=== PATIENT | male | born 1970 | race Caucasian/White ===

== ENCOUNTER 2023-01-13 21:40 | Emergency (ER) | payer OTHER ==
[2023-01-13 21:48] VITALS: RESP 18; BMI 27.8
[2023-01-13] MEDS ORDERED: morphine SULFATE 4 MG/ML VIAL IVPUSH ONE (22:30)
[2023-01-13] MEDS ORDERED: ONDANSETRON 4 MG/2 ML VIAL ONE (22:37)
[2023-01-13] MEDS ORDERED: morphine SULFATE 4 MG/ML VIAL ONE (22:37)
[2023-01-13] MEDS ORDERED: ONDANSETRON 4 MG/2 ML VIAL IVPUSH ONE (22:38)
[2023-01-13 22:58] LABS: BASO % 0.4 % (0-2.0); EOS % 0.4 % (0-4.5); HEMATOCRIT 44.9 % (35.4-49); HEMOGLOBIN 15.3 GM/dL (11.7-16.9); LYMPH % 4.9 % (8-40); MCH 31.7 pg (25.7-33.7); MCHC 34.1 g/dl (32.0-35.9); MEAN CELL VOLUME 92.8 fl (80-96); MEAN PLT VOLUME 8.6 fl (7.5-11.1); MONO % 4.8 % (3.8-10.2); NEUT % 89.5 % (42.8-82.8); PLATELET COUNT 268 10^3/uL (134-434); RBC 4.84 M/mm3 (4.00-5.60); RDW 13.2 % (11.9-15.9); WHITE BLOOD COUNT 12.3 K/mm3 (4.0-10.0)
[2023-01-13 23:31] LABS: POTASSIUM 3.9 mmol/L (3.5-5.1)
[2023-01-13 23:33] LABS: EPI CELLS 2 /uL (0-25.1); HYALINE CASTS 0 /uL (0-3.1); PH,URINE 5.5 (5.0-8.0); URINE APPEARANCE CLEAR; URINE BACTERIA 0 /uL (0-1359); URINE BILIRUBIN NEGATIVE (NEGATIVE); URINE COLOR YELLOW; URINE GLUCOSE (UA) NEGATIVE (NEGATIVE); URINE KETONE NEGATIVE (NEGATIVE); URINE LEUK ESTERASE NEGATIVE (NEGATIVE); URINE NITRITE NEGATIVE (NEGATIVE); URINE PROTEIN TRACE (NEGATIVE); URINE RBC 85 /uL (0-23.9); URINE UROBILINOGEN 0.2 mg/dL (0.2-1.0); URINE WBC 7 /uL (0-25.8)
[2023-01-13 23:33] LABS: ALBUMIN 3.5 g/dl (3.4-5.0)
[2023-01-13 23:34] LABS: BLOOD UREA NITROGEN 21.1 mg/dL (7-18)
[2023-01-13 23:36] LABS: CREATININE 1.3 mg/dL (0.55-1.3)
[2023-01-13 23:38] LABS: BILIRUBIN,TOTAL 0.2 mg/dL (0.2-1); TOT PROT 7.2 g/dl (6.4-8.2)
[2023-01-14 00:50] VITALS: BP 147/84; PULSE 44; TEMP 98
[2023-01-14] MEDS ORDERED: TAMSULOSIN HCL 0.4 MG CAP PO ONE (00:51)
[2023-01-14] MEDS ORDERED: TAMSULOSIN HCL 0.4 MG CAP ONE (01:24)
== END 2023-01-14 01:36 | disposition home or self-care (01) ==
LOC: JER 21:40
PROC: 3E033GC Introduction of Other Therapeutic Substance into Peripheral Vein, Percutaneous Approach (ICD-10-PCS; principal; 2023-01-13)
PROC: 3E033GC Introduction of Other Therapeutic Substance into Peripheral Vein, Percutaneous Approach (ICD-10-PCS; 2023-01-13)
DX: N20.0 Calculus of kidney (principal); R10.30 Lower abdominal pain, unspecified
CPT/HCPCS: 36415; 74176-TC; 80053; 81003; 85025; 99284-25